=== PATIENT | female | born 1960 | race Caucasian/White ===

== ENCOUNTER 2016-04-28 10:40 | Observation (INO) | payer BC ==
[~2016-04-28] VITALS: Ht 177.8 cm; Wt 109.0 kg
[~2016-04-28 10:40] MED LIST: AUGMENTIN 875-1 EACH PO; BACTRIM,SEPT1 TABLET PO; BENICAR HCT1 TABLE2; HYDROCHLOROTHIA25 MG PO; LISINOPRIL/HCTZ; PRAVASTATIN SOD80 MG PO; TYLENOL EXTRA500 M2 PO; [UNRECOGNIZED DRUG - REMARK]
[2016-04-28 11:42] LABS: MCH 30.3 PG (29.0-34.0); MCHC 34.4 G/DL (30.0-36.0); MCV 87.9 FL (83-99); MEAN PLAT.VOLUME 10.9 uM^3 (9.5-12.4); PLATELET COUNT 227 K/uL (156-360); RBC DIS.WIDTH-SD 41.1 % (39-53); RED BLOOD COUNT 5.12 M/uL (3.80-5.20); WHITE BLOOD COUNT 7.8 K/uL (4.1-10.2)
[2016-04-28 11:52] LABS: CHLORIDE 101 mEq/L (99-109); SODIUM 137 mEq/L (136-147)
[2016-04-28 11:54] LABS: GLUCOSE 206 mg/dL (70-99)
[2016-04-28 11:55] LABS: ANION GAP 11 MEQ/L (2-14)
[2016-04-28 11:58] LABS: GFR ESTIMATE (CALCULATED) > 59 mL/min/; UREA NITROGEN (BUN) 9 mg/dL (9-23)
[2016-04-28 12:02] LABS: TROP-I INTERPRETATION NEGATIVE; TROPONIN-I < 0.01 ng/mL (0.0-0.30)
[2016-04-28] MEDS ORDERED: ATORVASTATIN CA10 MG PO (12:03)
[2016-04-28] MEDS ORDERED: VALSARTAN-HCTZ1 EAC3 PO (12:05)
[2016-04-28] MEDS ORDERED: ASPIR 8181 M1 PO (12:06)
[2016-04-28] MEDS ORDERED: VITAMIN D31000 UNIT PO (12:07)
[2016-04-28 17:59] LABS: TROP-I INTERPRETATION NEGATIVE; TROPONIN-I < 0.01 ng/mL (0.0-0.30)
[2016-04-28 18:25] LABS: HDL CHOLESTEROL 45 MG/DL (Desirable>=50); LDL CHOLESTEROL 106 mg/dL (Desirable<100); NON-HDL CHOLESTEROL 125 mg/dL (Desirable<160); TOTAL CHOLESTEROL 170 mg/dL (Desirable<200); TRIGLYCERIDES 96 MG/DL (Normal: <150)
[2016-04-28 18:35] LABS: Estimated Average Glucose 157 mg/dL (70-123); HEMOGLOBIN A1c (GLYCOHEMOGLOB) 7.1 % HGB (Below 5.7)
[2016-04-28 20:55] VITALS: BP 126/62
[2016-04-29] LABS: TROP-I INTERPRETATION NEGATIVE; TROPONIN-I < 0.01 ng/mL (0.0-0.30)
[2016-04-29 05:35] VITALS: BP 120/59
[2016-04-29 08:26] VITALS: BP 151/75
[2016-04-29 11:56] VITALS: BP 133/80
[2016-04-29] MEDS ORDERED: CLOPIDOGREL75 MG PO (13:42)
[2016-04-29] MEDS ORDERED: METFORMIN HCL500 MG PO (13:43)
== END 2016-04-29 14:19 | disposition home or self-care (01) ==
LOC: EME 10:40 → EDOF 16:47 → 5WEST 20:06
PROVIDERS: Internal Medicine
DX: I63.412 Cerebral infarction due to embolism of left middle cerebral artery (principal); I10 Essential (primary) hypertension; E11.9 Type 2 diabetes mellitus without complications; E78.5 Hyperlipidemia, unspecified; F17.210 Nicotine dependence, cigarettes, uncomplicated; Z86.711 Personal history of pulmonary embolism
CPT/HCPCS: 70450; 70551; 71020; 80048; 80061; 83036; 84484; 85027; 93005; 93880; 99281; 99285; G0378; J1650; J7030